=== PATIENT | female | born 1945 | race Caucasian/White ===

== ENCOUNTER 2016-10-16 16:52 | Emergency (ER) | payer OTHER, MEDICARE ==
[~2016-10-16] VITALS: Ht 149.9 cm; Wt 67.8 kg
[2016-10-16 16:57] VITALS: BP 160/94; PULSE 85; RESP 16; TEMP 97.9; O2SAT 98
[2016-10-16] MEDS ORDERED: LEVO.075 PO (17:08)
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
[2016-10-16] MEDS ORDERED: IBUP-232 PO (20:27)
[2016-10-16] MEDS ORDERED: CYCL7.5T33 PO (20:27)
== END 2016-10-16 20:54 | disposition home or self-care (01) ==
LOC: PHEFT 16:52
DX: M25.512 Pain in left shoulder (principal); V53.5XXA Driver of pick-up truck or van injured in collision with car, pick-up truck or van in traffic accident, initial encounter; Y93.9 Activity, unspecified; Y92.9 Unspecified place or not applicable; Y99.9 Unspecified external cause status
CPT/HCPCS: 70450; 72125; 73030